=== PATIENT | male | born 1970 | race Two or more races ===

== ENCOUNTER → 2024-08-20 | Outpatient (CLI) | payer MEDICAID, SELFPAY ==
--- NOTE | 2024-08-20 15:59 | XR_ITS ---
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
--- NOTE | 2024-08-20 15:59 | XR_ITS ---
Examination: Wrist, right 3 views Technique: Wrist AP, oblique, lateral 3 views Date and time of exam: August 20, 2024 1611 hours INDICATIONS: Patient fell April 2024 with injury to the wrist, persistent wrist pain. FINDINGS: Mild to moderate osteopenia Mild narrowing radiocarpal intercarpal and first carpometacarpal joints, as well as first metacarpal phalangeal joint No acute fracture No avascular necrosis IMPRESSION: No acute fracture
== END | disposition home or self-care (01) ==
PROVIDERS: PCP Nurse Practitioner Gerontology; Referring Provider Nurse Practitioner Gerontology; Visit Provider Nurse Practitioner Gerontology
DX: S69.91XA Unspecified injury of right wrist, hand and finger(s), initial encounter (principal); W19.XXXA Unspecified fall, initial encounter
CPT/HCPCS: 73110; 73130